=== PATIENT | female | born 1960 | race Two or more races ===

== ENCOUNTER 2023-11-27 11:00 | Emergency (ER) | payer BC ==
[2023-11-27] MEDS: diphenhydrAMINE 50 MG/ML SDV IVPUSH ONE (11:32)
[2023-11-27] MEDS: Sodium Chloride 0.9% 10 ML Syringe FLUSH PRN (11:32)
[2023-11-27] MEDS: Metoclopramide 10 MG/2 ML SDV IVPUSH ONE (11:32)
[2023-11-27] MEDS: fentaNYL 100 MCG/2 ML SDV IVPUSH ONE (11:32)
[2023-11-27] MEDS: Sodium Chloride 0.9% 1,000 ML IV ONE (11:33)
[2023-11-27] MEDS: Ketorolac 30 MG/ML SDV IVPUSH ONE (12:34)
== END 2023-11-27 12:48 | disposition home or self-care (01) ==
LOC: DL.ED 11:00
DX: R51.9 Headache, unspecified (principal); R42 Dizziness and giddiness; R11.0 Nausea; I10 Essential (primary) hypertension; E11.9 Type 2 diabetes mellitus without complications
CPT/HCPCS: 70450; 96361; 96374; 96375; 99284; 99284-25; J1200; J1885; J2765; J3010; J3490; J7030